=== PATIENT | female | born 1955 | race Caucasian/White ===

== ENCOUNTER 2017-06-03 11:31 | Emergency (ER) | payer OTHER ==
[~2017-06-03] VITALS: Ht 165.1 cm; Wt 90.9 kg
[2017-06-03 11:47] VITALS: BP 160/59; PULSE 68; RESP 18; O2SAT 100
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
[2017-06-03 12:09] VITALS: BP 149/67; PULSE 68; RESP 20; O2SAT 99
[2017-06-03] MEDS ORDERED: 0.9% Sodium Chloride 1,000 ML IV ONE (12:09)
[2017-06-03] MEDS ORDERED: Ondansetron 2 mg/mL 2 mL Inj IVPUSH ONE (12:10)
[2017-06-03 12:23] LABS: BASOPHILS % (AUTO) 0.3 % (0-3); MONOCYTES % (AUTO) 6.3 % (4-12); Mean Corpuscular Volume 93.7 fL (81-100); NEUTROPHILS % (AUTO) 45.3 % (40-74); Platelet Count 300 bil/L (150-400)
[2017-06-03 12:43] LABS: INR 0.88 ratio
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
[2017-06-03] MEDS ORDERED: CYCL10TA9 PO (13:57)
[2017-06-03 14:09] VITALS: BP 135/51; PULSE 64; RESP 18; O2SAT 99
[2017-06-03 14:11] VITALS: BP 135/51; PULSE 64; RESP 18; O2SAT 99
== END 2017-06-03 14:10 | disposition home or self-care (01) ==
LOC: EDBD 11:31 → SED 11:31
DX: S20.219A Contusion of unspecified front wall of thorax, initial encounter (principal); V53.6XXA Passenger in pick-up truck or van injured in collision with car, pick-up truck or van in traffic accident, initial encounter; Y93.89 Activity, other specified; Y92.410 Unspecified street and highway as the place of occurrence of the external cause; Y99.8 Other external cause status; I10 Essential (primary) hypertension; J44.9 Chronic obstructive pulmonary disease, unspecified; I47.1 Supraventricular tachycardia; Z98.890 Other specified postprocedural states
CPT/HCPCS: 36415; 71010; 71260; 80053; 85025; 85610; 86850; 96361; 96374; 96375; 99285; J2060; J2405; J7030